=== PATIENT | female | born 1975 ===

== ENCOUNTER 2019-06-08 09:00 | Inpatient (IN) | payer OTHER ==
[~2019-06-08] VITALS: Ht 160 cm; Wt 60.8 kg
[2019-06-08] MEDS ORDERED: ASPIR-LOW81 MG PO (12:22)
[2019-06-08] MEDS ORDERED: MULTIPLE VITAM1 EACH PO (12:22)
[2019-06-12] MEDS ORDERED: ULTRAM50 MG PO (10:14)
[2019-06-12] MEDS ORDERED: COLACE100 MG PO (10:15)
== END 2019-06-12 08:00 | disposition home or self-care (01) | DRG 743 ==
LOC: EDSTATUS 09:00 → ADM 09:00 → O/R 06-11 05:47 → SURH 06-11 05:47 → CIR.AMB 06-11 07:00 → O/R 06-11 07:00 → SURH 06-11 09:00 → EDSTATUS 06-11 09:00 → SURH 06-11 13:30 → O/R 06-11 19:14 → SURH 06-11 19:14 → O/R 06-12 08:00 → CIR.AMB 06-12 08:00 → O/R 06-12 15:02 → SURH 06-12 15:02
PROVIDERS: ADMIT Obstetrics & Gynecology
PROC: 0UT74ZZ Resection of Bilateral Fallopian Tubes, Percutaneous Endoscopic Approach (ICD-10-PCS; 2019-06-11)
PROC: 0USG4ZZ Reposition Vagina, Percutaneous Endoscopic Approach (ICD-10-PCS; 2019-06-11)
PROC: 0UT94ZZ Resection of Uterus, Percutaneous Endoscopic Approach (ICD-10-PCS; principal; 2019-06-11 13:30)
DX: D25.1 Intramural leiomyoma of uterus (principal); N72 Inflammatory disease of cervix uteri; N83.8 Other noninflammatory disorders of ovary, fallopian tube and broad ligament; N83.292 Other ovarian cyst, left side; N81.11 Cystocele, midline